=== PATIENT | female | born 1975 | race Caucasian/White ===

== ENCOUNTER 2020-10-18 07:23 | Outpatient (CLI) | payer OTHER ==
--- NOTE | 2020-10-18 15:49 | XRAY Report ---
PROCEDURE: Knee 4 View RT INDICATIONS: KNEE PAIN, RIGHT TECHNIQUE: 4 views of the right knee(s) were acquired. COMPARISON: None. FINDINGS: Bones: No fractures or dislocations. No suspicious bony lesions. Mild medial and patellofemoral com partment osteoarthritis. Soft tissues: No joint effusion. No suspicious soft tissue calcifications. IMPRESSION: 1. Mild medial and patellofemoral compartment osteoarthritis. 2. No fracture. No acute osseous lesion. If there persistent symptoms or continued clinical concern f or pathology, then repeat plain film radiographs (7-10 days) or advanced imaging (CT, MR, bone scan) should be considered for further evaluation. Reviewed by: Mable Hernandez MD, PhD on 10/18/2020 3:48 PM PST Approved by: Mable Hernandez MD, PhD on 10/18/2020 3:48 PM PST Station ID: [id number]
== END 2020-10-18 23:59 | disposition home or self-care (01) ==
LOC: DI.N 07:23
PROVIDERS: ATTEND Physician Assistant
DX: M17.11 Unilateral primary osteoarthritis, right knee (principal)

== ENCOUNTER 2023-10-13 10:40 | Outpatient (CLI) | payer OTHER ==
--- NOTE | 2023-10-14 14:48 | Mammography Report ---
BILATERAL DIGITAL DIAGNOSTIC MAMMOGRAM 3D/2D WITH SPOT COMPRESSION AND MAGNIFICATION: 10/13/2023 CLINICAL: Baseline exam. Palpable right breast lump. No prior exams were available for comparison. Both breasts are heterogeneously dense, which may obscure small masses (category c / 51-75% glandular tissue). There is a 2.2 cm irregular mass with a spiculated margin in the right breast at 10 o'clock posterior depth. This correlates as palpated. There are associated amorphous and coarse heterogenous calcifi cations within the mass as well as extending anteriorly in a segmental distribution spanning up to 6. 0 cm. There is a 0.7 cm oval mass with a circumscribed margin in the right breast at 9 o'clock anterior dep th. No other significant masses, calcifications, or other findings are seen in either breast. IMPRESSION: INCOMPLETE: NEEDS ADDITIONAL IMAGING EVALUATION Right breast 2.2 cm irregular mass 10 o'clock posterior depth corresponding to area of clinical palpa ble concern. An ultrasound is recommended for further evaluation and is scheduled to immediately foll ow this examination. Right breast 0.7 cm oval mass at 9 o'clock anterior depth. An ultrasound is recommended for further evaluation and is scheduled to immediately follow this examination. Based on the Tyrer Cuzick model (a risk assessment model) the patient's lifetime risk is 8.6% and her 10 year risk is 1.9%. According to the ACR, ACS, and NCCN guidelines, an annual breast MRI exam asrah g with mammogram is recommended if the patients lifetime risk is 20% or greater. This exam was interpreted at Station ID: [id number]. NOTE: For mammograms, a report in lay terms will be sent to the patient. Approximately 15% of breast malignancies will not be visualized mammographically. In the management of a palpable breast mass, a negative mammogram must not discourage biopsy of a clinically suspicious lesion. Electronically Signed By: Tiaar Zurita M.D., PH.D eb/:10/14/2023 14:25:16 Entry: - 10/14/2023 14:25:17 ACR BI-RADS Category 0: Incomplete 3340F PARENCHYMAL PATTERN: (D) - The breast(s) demonstrate(s) heterogeneously dense fibroglandular parenchy ma. BI-RADS CATEGORY: (0) - 0 Ultrasound [id number] Immediate follow-up LATERALITY: (B)
--- NOTE | 2023-10-14 14:48 | Ultrasound Report ---
LIMITED ULTRASOUND OF RIGHT BREAST AND AXILLA: 10/13/2023 CLINICAL: Palpable right breast lump. Palpable right breast lump by physician. Comparison is made to exam dated: 10/13/2023 mammogram - Located within [facility]. Color flow and real-time ultrasound of the right breast 10 o'clock, and axilla regions were performed . Rahman scale images of the real-time examination were reviewed. There is a 2.1 cm x 2.1 cm x 1.2 cm oval mass with a non-circumscribed margin in the right breast at 10 o'clock, 10 cm from the nipple. This oval mass is heterogeneously echogenic. This correlates as palpated and with mammography findings. There is a 0.6 cm x 0.5 cm x 0.4 cm oval mass with an angular margin (best seen on cine images) in th e right breast at 9 o'clock, 2 cm from the nipple. This oval mass is hypoechoic with posterior acous tic enhancement. This correlates with mammography findings. Color flow imaging demonstrates that th ere is peripheral vascularity present. No abnormal lymph nodes are seen in the right axilla. IMPRESSION: SUSPICIOUS OF MALIGNANCY Right breast 2.1 cm oval mass 10 o'clock corresponding to area of palpable concern. Finding is suspic ious. Recommend ultrasound guided core biopsy. Right breast 0.6 cm oval mass with angular margins in the right breast at 9 o'clock. Finding may rep resent a cyst given posterior acoustic enhancement, however given suspicious margins recommend ultras ound guided cyst aspiration versus core biopsy if finding does not aspirate. Findings and recommendations were discussed with the patient by Dr. Monroe at time of imaging of [facility]. This exam was interpreted at Station ID: [id number]. Electronically Signed By: Tiara Zurita M.D., PH.D eb/:10/14/2023 14:25:56 Entry: - 10/14/2023 14:25:56 Ultrasound BI-RADS: 4 Suspicious for malignancy BI-RADS CATEGORY: (4) - 4 Biopsy [id number] Immediate follow-up LATERALITY: (R)
== END 2023-10-13 10:41 | disposition home or self-care (01) ==
LOC: DI 10:40
PROVIDERS: ATTEND Physician Assistant Medical
DX: N63.11 Unspecified lump in the right breast, upper outer quadrant (principal); N63.15 Unspecified lump in the right breast, overlapping quadrants; R92.333 Mammographic heterogeneous density, bilateral breasts

== ENCOUNTER 2023-10-19 09:49 | Outpatient (CLI) | payer OTHER ==
[2023-10-19] MEDS ORDERED: LIDOCAINE 1%-EPI 1:100000 50 ML VIAL ONE (11:15)
[2023-10-19] MEDS ORDERED: LIDOCAINE-MPF 1% 5 ML VIAL ONE (11:26)
[2023-10-19] MEDS: LIDOCAINE 1%-EPI 1:100000 50 ML VIAL SUBQ SCH (13:20)
[2023-10-19] MEDS: LIDOCAINE-MPF 1% 5 ML VIAL TD ONE (13:21)
[2023-10-19] MEDS ORDERED: LIDOCAINE 1%-EPI 1:100000 50 ML VIAL SUBQ ONE (14:00)
--- NOTE | 2023-10-21 11:31 | Mammography Report ---
UNILATERAL RIGHT DIGITAL DIAGNOSTIC MAMMOGRAM WITH EXAGGERATED CC POST-PROCEDURE IMAGING FOR MARKER P LACEMENT: 10/19/2023 CLINICAL: Post right breast ultrasound biopsy clip placement imaging. Comparison is made to exam dated: 10/13/2023 mammogram - [facility]. The right breast is heterogeneously dense, which may obscure small masses (category c / 51-75% glandu lar tissue). Post biopsy mammogram demonstrates biopsy clip in the expected location. IMPRESSION: POST PROCEDURE MAMMOGRAM FOR MARKER PLACEMENT Post biopsy mammogram demonstrates biopsy clip in the expected location. Please see separately dictat ed ultrasound guided biopsy report for additional details and pathology. Based on the Tyrer Cuzick model (a risk assessment model) the patient's lifetime risk is 9.5% and her 10 year risk is 2.1%. According to the ACR, ACS, and NCCN guidelines, an annual breast MRI exam sarah g with mammogram is recommended if the patient's lifetime risk is 20% or greater. This exam was interpreted at Station ID: [id number]. NOTE: For mammograms, a report in lay terms will be sent to the patient. Approximately 15% of breast malignancies will not be visualized mammographically. In the management of a palpable breast mass, a negative mammogram must not discourage biopsy of a clinically suspicious lesion. Electronically Signed By: Tiara Zurita M.D., PH.D eb/:10/20/2023 21:50:02 ACR BI-RADS Category Post-procedure mammogram for marker placement PARENCHYMAL PATTERN: (D) - The breast(s) demonstrate(s) heterogeneously dense fibroglandular audie pruitt. BI-RADS CATEGORY: () - Unspecified - other recall n/a LATERALITY: (B)
--- NOTE | 2023-10-22 11:57 | Ultrasound Report ---
MULTIPLE ULTRASOUND GUIDED BIOPSIES RIGHT BREAST USING VACUUM DEVICE WITH MARKING DEVICE INSERTED AND POST MAMMOGRAPHIC IMAGIN10/19/2023 CLINICAL: Right breast mass. PATIENT CONSENT: Risks (minor bleeding, infection, vasovagal reaction and repeat procedure), benefits and alternatives were explained to the patient and written informed consent was obtained. Correlation is made to exams dated: 10/13/2023 ultrasound and [facility] An ultrasound guided biopsy using real-time ultrasound was performed for the mass located in the righ t breast at 10 o'clock, 10 cm from the nipple. The skin was prepped in the usual manner. Local anes thetic was administered to the access site. A skin sy was made in the breast. The abnormality was approached from the lateral aspect. A 13 gauge biopsy needle was placed adjacent to the abnormality under ultrasound guidance. Once the needle was documented to be in the correct location, four speci mens were obtained using the Mammotome biopsy system. A clip was inserted into the biopsy cavity. A sterile dressing was applied to the access site. Post procedure mammographic imaging demonstrates t he biopsy clip at the targeted area. The specimens were sent to the laboratory for pathological anal ysis. The previously described 0.6 cm oval circumscribed mass at 9 o'clock, 2 cm from the nipple demonstrat es more pronounced posterior acoustic enhancement on pre-procedure imaging. The skin was prepped in t he usual manner. Local anesthetic was administered to the access site. Using 25 G needle the abnorm ality was approached from the lateral aspect and scant clear fluid was aspirated. The finding resolve d following aspiration consistent with a benign simple cyst. IMPRESSION: ULTRASOUND GUIDED BIOPSY MALIGNANT 1) Ultrasound guided biopsy of the mass in the right breast at 10 o'clock, 10 cm from the nipple was successful. Biopsy clip is at site. Pathology revealed malignant invasive ductal carcinoma (IDC) and ductal carcinoma in situ (DCIS). Pathology is concordant with imaging. Recommend surgical and [facility] consultation. If it would impact clinical management, stereotactic biopsy of the anterior aspect of suspicious segmental calcifications can be performed to confirm extent of disease. 2) Successful ultrasound guided cyst aspiration at 9 o'clock, 2 cm from the nipple. This exam was interpreted at Station ID: [id number]. Tiara Zurita M.D., PH.D eb/:10/22/2023 11:49:06 BI-RADS CATEGORY: () - Unspecified - other recall n/a LATERALITY: (B)
== END 2023-10-19 09:50 | disposition home or self-care (01) ==
LOC: DI 09:49
PROVIDERS: ATTEND Physician Assistant Medical
DX: C50.811 Malignant neoplasm of overlapping sites of right female breast (principal); C50.411 Malignant neoplasm of upper-outer quadrant of right female breast; Z17.0 Estrogen receptor positive status [ER+]
CPT/HCPCS: 19083; 77065; J3490

== ENCOUNTER 2024-03-23 09:42 | Day surgery (SDC) | payer OTHER ==
[2024-03-23] MEDS: LACTATED RINGERS 1,000 ML IV ONE ×2 (09:50→13:54)
[2024-03-23] MEDS ORDERED: BUPIVACAINE 0.5%-EPI 1:200000 PF 10 ML VIAL ONE (10:16)
[2024-03-23] MEDS ORDERED: iohexoL-240 10 ML VIAL IVP ONE (10:16)
[2024-03-23] MEDS ORDERED: BUPIVACAINE 0.5% PF 10 ML VIAL ONE ×2 (10:16→12:09)
[2024-03-23] MEDS ORDERED: ACETAMINOPHEN 500 MG TABLET PO ONE (11:24)
[2024-03-23] MEDS ORDERED: ceFAZolin 2 GM VIAL ONE (11:25)
--- NOTE | 2024-03-23 11:51 | ANESTHESIA ---
Pre-Anesthesia VS, & Labs - Diagnosis breast CA - Procedure port a cath placement Vital Signs: Temp Pulse Resp BP Pulse Ox O2 Flow Rate 36.0 C L 70 16 111/73 96 03/23/24 09:50 03/23/24 09:50 03/23/24 09:50 03/23/24 09:50 03/23/24 09:50 Height: 5 ft 6 in Weight (kg): 95.9 kg Body Mass Index: 34.1 BMI Classification: Obese - NPO >8 hours - Is Patient ?: Waiver signed - Lab Results Lab results reviewed: Yes Home Medications and Allergies Escitalopram [Lexapro] 10 mg PO DAILY 11/23/23 Ginkgo Biloba Trilla Extract [Ginkgo Biloba] 60 mg PO DAILY 11/23/23 Mecobalamin [B12 Active] 5,000 mcg PO DAILY 11/23/23 Omeprazole 20 mg PO DAILY 11/23/23 Turmeric Root Extract [Turmeric] 1,950 mg PO DAILY 11/23/23 Tamoxifen Citrate 20 mg PO DAILY 11/26/23 Lidocaine/Prilocain 2.5% Cream [Emla 2.5% Cream] 1 each TP PRN PRN 03/22/24 OLANZapine [Olanzapine] 5 mg PO DAILY PM 03/22/24 Prochlorperazine Maleate [Compazine] 10 mg PO Q6HR PRN 03/22/24 dexAMETHasone [Decadron] 4 mg PO BID 03/22/24 ondansetron HCL [Ondansetron HCl] 8 mg PO Q8HR PRN 03/22/24 Allergies/Adverse Reactions: Allergies Allergy/AdvReac Type Severity Reaction Status Date / Time No Known Drug Allergies Allergy Verified 11/23/23 11:24 Anes History & Medical History - Anesthetic History Anesthesia Complications: reports: No previous complications Family history of Anesthesia Complications: Denies Family history of Malignant Hyperthermia: Denies - Medical History Cardiovascular: reports: None Pulmonary: reports: None, Emphysema, Pneumonia Gastrointestinal: reports: GERD Urinary: reports: None Musculoskeletal: reports: None Endocrine/Autoimmune: reports: None Skin: reports: None - Surgical History Eyes Ears Nose Throat (EENT): reports: Other Gynecologic: reports: Mastectomy Exam General: Alert, Oriented x3, Cooperative Dental: WNL Mouth Openin Fingerbreadth Neck Mobility: Normal Mallampati classification: II Thyromental Distance: 4-6 cm Respiratory: Lungs clear, Normal breath sounds, No respiratory distress Cardiovascular: Regular rate Neurological: Normal speech Mental/Cognitive Status: Alert/Oriented X3, Normal for patient Cognitive Status: Within normal limits Plan Anesthesia Type: Total IV Consent for Procedure(s) Verified and Reviewed: Yes Code Status: Attempt Resuscitation ASA classification: 3-Severe systemic disease Is this case an emergency?: No
[2024-03-23] MEDS ORDERED: LIDOCAINE 1%-EPI 1:100000 20 ML MDV ONE (12:08)
[2024-03-23] MEDS ORDERED: MIDAZOLAM 2 MG/2 ML VIAL ONE (12:24)
[2024-03-23] MEDS ORDERED: LIDOCAINE-PF 2% 10 ML AMP SUBQ ONE (12:25)
[2024-03-23] MEDS ORDERED: PROPOFOL 200 MG/20 ML VIAL IVP ONE (12:28)
[2024-03-23] MEDS: LIDOCAINE 1%-EPI 1:100000 20 ML MDV SUBQ ONE (13:04)
[2024-03-23] MEDS: BUPIVACAINE 0.5% PF 10 ML VIAL IM ONE (13:05)
[2024-03-23] MEDS ORDERED: ONDANSETRON 4 MG/2 ML VIAL IVP PRN (13:43)
[2024-03-23] MEDS ORDERED: HYDROmorphone 0.5 MG/0.5 ML SYRINGE IVP PRN (13:43)
--- NOTE | 2024-03-23 13:47 | OPERATIVE REPORT ---
Operative Report - General Procedure Date: 03/23/24 Planned Procedure: Portacatheter placed Pre-Op Diagnosis: Breast cancer Procedure Performed: Right internal jugular vein portacatheter placement with ultrasound and fluoroscopy guidance Post Op Diagnosis: Breast cancer - Procedure Note Primary Surgeon: Dr. Cristal Mccollum Anesthesia Provider: Johnnie Llamas CRNA Anesthesia Technique: Local, MAC Estimated Blood Loss (mL): 5 Indications: The patient has breast cancer requiring chemotherapy. Her medical oncologist has requested portacatheter placement. The patient was seen and evaluated prior to the procedure. We discussed the risks, benefits, and alternatives of port acatheter placement. Risks include but are not limited to bleeding, infection, damage to surrounding structures including the lung, portacatheter infection requiring removal, or portacatheter dysfunction requiring revision or replacement. The patient voiced understanding, her questions were answered, and she wished to proceed. A consent was signed by the patient prior to the procedure. Findings: 1. Patent right internal jugular vein 2. Portacatheter flushes and draws easily Complications: None - Other Other Information/Narrative: The patient was taken to the operative suite and placed in the supine position preoperative ERAS medications given. Preoperative antibiotics given. MAC anesthesia was induced to the appropriate level of consciousness. An ultrasound was used to verify the right internal jugular vein was widely patent. The patient was then prepped and draped in the usual, sterile fashion. Next, a sterile ultrasound probe was used to visualize the right internal jugular vein local anesthetic was injected into the skin and subcutaneous tissues overlying this vessel and an 11 blade scalpel was used to make a small skin sy. Next, under direct ultrasound guidance, a Cook needle was used to gain access to the right internal jugular vein. This was successful on the first attempt. There was excellent return of dark red nonpulsatile blood. A guidewire was passed through the Cook needle without resistance. Fluoroscopy was used to verify the position of the wire. Ultrasound was also used to verify the position of the wire. Next, attention was turned to the chest. The location was chosen on the right anterior chest wall for the portacatheter to sit. The skin and subcutaneous tissues in this area were anesthetized with local as was the path which the catheter would follow up to the neck incision. A 15 blade scalpel was used to make a 2 cm incision in the which was carried down through the skin and subcutaneous tissues to the level of the clavipectoral fascia. A pocket was made with blunt dissection to accommodate the port. Port easily fit within the pocket. 2 interrupted sutures of 3-0 PDS were placed through the port to tack it to the clavipectoral fascia. These were tied into place and then the port was tunneled from the inferior chest wall incision to the superior neck incision. Next, the catheter was cut to the appropriate length, 21cm, under direct fluoroscopic guidance. A dilator and sheath were passed over the guidewire under direct fluoroscopic guidance and the dilator and guidewire were removed leaving only the breakaway sheath in place. The catheter was passed through the sheath and the sheath was broken away. The catheter was the only thing that remained within the vessel. Fluoroscopy confirmed that the catheter tip was in good position and that there were no kinks at the neck. The catheter flushed and mike easily. Next, 3-0 Vicryl was used in an interrupted fashion to reapproximate the deep dermal tissues at the chest incision. Then, 4-0 Monocryl was used in an interrupted subcuticular fashion to reapproximate the skin at the neck incision and in a running subcuticular fashion to reapproximate the skin at the chest incision. A sterile dressing of skin glue was placed. The port was flushed with 2 mL 100 units/mL heparinized saline. The patient tolerated the procedure well and there were no complications. A postoperative chest x-ray is pending at this time.
[2024-03-23] MEDS ORDERED: IBUPROFEN 600 MG TABLET PO ONE (14:14)
[2024-03-23] MEDS ORDERED: oxyCODONE 5 MG TABLET ONE (14:15)
[2024-03-23] MEDS: IBUPROFEN 600 MG TABLET PO PRN (14:16)
[2024-03-23] MEDS: oxyCODONE 5 MG TABLET PO PRN (14:16)
[2024-03-23 14:37] VITALS: BP 115/78; O2SAT 99
--- NOTE | 2024-03-23 17:14 | XRAY Report ---
PROCEDURE: Post Port Placement 1V CXR INDICATIONS: PORT PLACEMENT TECHNIQUE: One view of the chest was acquired. COMPARISON: None. FINDINGS: Surgical changes and devices: Right port present distal tip projecting over the proximal SVC. Lungs and pleura: No pleural effusions or pneumothorax. Lungs are clear. Mediastinum: Mediastinal contours appear normal. Heart size is normal. Bones and chest wall: No suspicious bony lesions. Overlying soft tissues appear unremarkable. IMPRESSION: Right port projecting over the proximal SVC. Reviewed by: Zulema Thapa MD on 03/23/2024 5:13 PM PDT Approved by: Zulema Thapa MD on 03/23/2024 5:13 PM PDT Station ID: [id number]
--- NOTE | 2024-03-23 18:05 | XRAY Report ---
PROCEDURE: OR C-Arm Procedure INDICATIONS: PORTACATH PLACEMENT FLUORO TIME: 0.3 MIN TECHNIQUE: Intraoperative images demonstrate a the right chest. COMPARISON: None. FINDINGS: Right Port-A-Cath is present distal tip projecting over the proximal SVC. IMPRESSION: Right Port-A-Cath with distal tip projecting over the proximal SVC. Reviewed by: Zulema Thapa MD on 03/23/2024 6:04 PM PDT Approved by: Zulema Thapa MD on 03/23/2024 6:04 PM PDT Station ID: [id number]
== END 2024-03-23 09:43 | disposition home or self-care (01) ==
LOC: SDS 09:42
PROVIDERS: ATTEND Surgery
DX: C50.911 Malignant neoplasm of unspecified site of right female breast (principal); E66.9 Obesity, unspecified; Z68.34 Body mass index [BMI] 34.0-34.9, adult; J43.9 Emphysema, unspecified
CPT/HCPCS: 36561; A9270; C1788; J7120; Q9966